=== PATIENT | male | born 1955 | race Caucasian/White ===

== ENCOUNTER 2018-07-03 08:15 | Emergency (ER) | payer OTHER ==
[~2018-07-03] VITALS: Ht 165.1 cm; Wt 64.9 kg
[2018-07-03] MEDS ORDERED: VOLTAREN100 GM PO (08:25)
== END 2018-07-03 11:27 | disposition home or self-care (01) ==
LOC: ER 08:15
DX: S40.011A Contusion of right shoulder, initial encounter (principal); M12.511 Traumatic arthropathy, right shoulder; M75.81 Other shoulder lesions, right shoulder; W22.8XXA Striking against or struck by other objects, initial encounter; Y93.73 Activity, racquet and hand sports; Y92.39 Other specified sports and athletic area as the place of occurrence of the external cause; Y99.8 Other external cause status